=== PATIENT | female | born 1985 | race Caucasian/White ===

== ENCOUNTER 2017-05-30 11:06 | Emergency (ER) | payer BC ==
--- NOTE | 2017-05-30 11:27 | EDM.PDOC ---
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 Problem Stated Complaint: PELVIC PAIN Time Seen by Provider: 05/30/17 11:27 Source of Information: Reports: Patient - History of Present Illness INITIAL COMMENTS - FREE TEXT/NARRATIVE: HISTORY AND PHYSICAL: HISTORY AND PHYSICAL: History of present illness: []Patient presents with pain that began immediately after intercourse on Sunday she rates 7 out of 10, she is in no distress she does have vaginal discharge and history of ovarian torsion due to large cysts on the right with oophorectomy Denies abnormal Pap smears No fever nausea vomiting chills sweats no chest pain shortness breath headache dizziness palpitation no bowel or urine symptoms Review of systems: As per history of present illness and below otherwise all systems reviewed and negative. Past medical history: As per history of present illness and as reviewed below otherwise noncontributory. Surgical history: As per history of present illness and as reviewed below otherwise noncontributory. Social history: No reported history of drug or alcohol abuse. Family history: As per history of present illness and as reviewed below otherwise noncontributory. Physical exam: HEENT: Atraumatic, normocephalic, pupils reactive, negative for conjunctival pallor or scleral icterus, mucous membranes moist, throat clear, neck supple, nontender, trachea midline. Lungs: Clear to auscultation, breath sounds equal bilaterally, chest nontender. Heart: S1S2, regular, negative for clicks, rubs, or JVD. Abdomen: Soft, nondistended, nontender. Negative for masses or hepatosplenomegaly. Negative for costovertebral tenderness. Pelvis: Stable nontender. Genitourinary: External vaginal exam slight diffuse infection no mass scar or lesion otherwise, internal exam again mild yeast with amaya discharge no cervical motion tenderness no mass scarred lesion mucosa is otherwise pink and moist Rectal: Deferred. Extremities: Atraumatic, negative for cords or calf pain. Neurovascular unremarkable. Neuro: Awake, alert, oriented. Cranial nerves II through XII unremarkable. Cerebellum unremarkable. Motor and sensory unremarkable throughout. Exam nonfocal. Diagnostics: []GC Chlamydia Wet prep Ultrasound pelvis Therapeutics: []Azithromycin 2 g Flagyl 500 mg by mouth twice a day #14 no refill Diflucan 150 mg by mouth every other day #3 Follow-up with primary care in 2 weeks sooner as needed Bus Monitor follow-up would be appropriate as well Impression: []Vaginal East infection Bacterial vaginosis Definitive disposition and diagnosis as appropriate pending reevaluation and review of above. Pelvic Pain Score (Numeric/FACES): 6 - Related Data Allergies Allergy/AdvReac Type Severity Reaction Status Date / Time Penicillins Allergy Hives Verified 05/30/17 11:14 Home Meds: Home Meds medroxyPROGESTERone Acetate [Depo-Provera] 05/30/17 [History] Past Medical History TIP FIXER History: Reports: Other (See Below) Other OB/BYN History: Ovarian torsion, - Past Surgical History GI Surgical History: Reports: Cholecystectomy Social & Family History - Tobacco Use Smoking Status *Q: Never Smoker - Caffeine Use Caffeine Use: Reports: Coffee - Recreational Drug Use Recreational Drug Use: No ED ROS GENERAL - Review of Systems Review Of Systems: ROS reveals no pertinent complaints other than HPI. ED EXAM, GENERAL - Physical Exam Exam: See Below Course - Vital Signs Last Recorded V/S: Last Vital Signs Temp 36.6 C 05/30/17 11:15 Pulse 79 05/30/17 11:15 Resp 18 05/30/17 11:15 BP 128/77 05/30/17 11:15 Pulse Ox 98 05/30/17 11:15 - Orders/Labs/Meds Orders: Active Orders 24 hr Category Date Time Status CHLAMYDIA TRACHOMATIS/GC AMPLF Stat Lab 05/30/17 11:53 Received Labs: Laboratory Tests 05/30/17 05/30/17 05/30/17 Range/Units 11:40 11:40 11:53 Urine Color YELLOW Urine Appearance CLEAR Urine pH 5.5 (5.0-8.0) Ur Specific [place] 1.025 (1.001-1.035) Urine Protein NEGATIVE (NEGATIVE) mg/dL Urine Glucose (UA) NEGATIVE (NEGATIVE) mg/dL Urine Ketones NEGATIVE (NEGATIVE) mg/dL Urine Occult Blood NEGATIVE (NEGATIVE) Urine Nitrite NEGATIVE (NEGATIVE) Urine Bilirubin NEGATIVE (NEGATIVE) Urine Urobilinogen 0.2 (<2.0) EU/dL Ur Leukocyte Esterase NEGATIVE (NEGATIVE) Urine RBC 1-3 (0-2/HPF) Urine WBC 3-5 (0-5/HPF) Ur Epithelial Cells FEW (NONE-FEW) Urine Bacteria FEW (NEGATIVE) Urine HCG, Qual NEGATIVE (NEGATIVE) Kelsey species DNA NEGATIVE (NEGATIVE) Gardnerella DNA Probe POSITIVE H (NEGATIVE) Trichomonas DNA Probe NEGATIVE (NEGATIVE) Meds: Medications Discontinued Medications Generic Name Dose Route Start Last Admin Trade Name Martín PRN Reason Stop Dose Admin Azithromycin 2,000 mg 05/30/17 12:59 Zithromax PO 05/30/17 13:00 STAT ONE Departure - Departure Time of Disposition: 13:09 Disposition: Home, Self-Care 01 Condition: Good Clinical Impression: Bacterial vaginosis, Vaginal yeast infection - Discharge Information Referrals: PCP,None [Primary Care Provider] - Forms: ED Department Discharge Additional Instructions: Medication as prescribed Return if symptoms persist or worsen Again lab is pending at this time and should be followed with primary care or gynecology Follow-up with primary care or head of design in 2 weeks [facility] [address] [place] [id number] [facility] [address] [place] [id number] The following information is given to patients seen in the emergency department who are being discharged to home. This information is to outline your options for follow-up care. We provide all patients seen in our emergency department with a follow-up referral. The need for follow-up, as well as the timing and circumstances, are variable depending upon the specifics of your emergency department visit. If you don't have a primary care physician on staff, we will provide you with a referral. We always advise you to contact your personal physician following an emergency department visit to inform them of the circumstance of the visit and for follow-up with them and/or the need for any referrals to a consulting specialist. The emergency department will also refer you to a specialist when appropriate. This referral assures that you have the opportunity for follow-up care with a specialist. All of these measure are taken in an effort to provide you with optimal care, which includes your follow-up. Under all circumstances we always encourage you to contact your private physician who remains a resource for coordinating your care. When calling for follow-up care, please make the office aware that this follow-up is from your recent emergency room visit. If for any reason you are refused follow-up, please contact the [facility] emergency department at and asked to speak to the emergency department charge nurse. - My Orders Last 24 Hours: My Active Orders 05/30/17 11:53 CHLAMYDIA TRACHOMATIS/GC AMPLF Stat - Assessment/Plan Last 24 Hours: My Active Orders 05/30/17 11:53 CHLAMYDIA TRACHOMATIS/GC AMPLF Stat
--- NOTE | 2017-05-30 12:42 | US ---
Pelvic sonogram. Multiple high-resolution images through the pelvis were obtained demonstrating a normal uterus with normal endometrium measuring 0.14 cm. There is a tiny amount of pelvic peritoneal fluid. Patient is status post removal of right ovary. Multiple small follicles are present on the left ovary. No solid masses identified. Impression: No acute abnormalities. Prior right oophorectomy. Small follicles on the left ovary and small free fluid without other finding. No finding to suggest either intrauterine or extra uterine g estation is likely
[2017-05-30] MEDS ORDERED: Azithromycin 250 MG Tab PO ONE (12:59)
[2017-05-30 13:59] VITALS: BP 124/78
== END 2017-05-30 13:40 | disposition home or self-care (01) ==
LOC: MW.ED 11:06
DX: N76.0 Acute vaginitis (principal); B37.3 Candidiasis of vulva and vagina; Z88.0 Allergy status to penicillin; Z90.49 Acquired absence of other specified parts of digestive tract
CPT/HCPCS: 76856; 81001; 81025; 87480; 87491; 87510; 87591; 87660; 99284; A9270; 99283

== ENCOUNTER 2020-01-19 05:16 | Inpatient (IN) | payer OTHER ==
[2020-01-19] MEDS ORDERED: Citric Acid/Sodium Citrate Solution 30 ML Cup PO ONE (05:24)
[2020-01-19] MEDS ORDERED: Ondansetron 4 MG/2 ML SDV IVPUSH PRN ×3 (05:24→09:22)
[2020-01-19] MEDS ORDERED: Azithromycin 500 MG in Sodium Chloride 0.9% 250 ML IV ONE ×5 (05:24→08:00)
[2020-01-19] MEDS ORDERED: Sodium Chloride 0.9% 10 ML Syringe FLUSH PRN (05:24)
[2020-01-19] MEDS ORDERED: Sodium Chloride 0.9% 10 ML SDV IV PRN (05:24)
[2020-01-19] MEDS ORDERED: Sodium Chloride 0.9% 2.5 ML Syringe FLUSH PRN (05:24)
[2020-01-19] MEDS ORDERED: Oxytocin/0.9 % Sodium Chloride 30 UNIT/500 ML BAG IV SCH (05:30)
[2020-01-19] MEDS ORDERED: Lactated Ringers 1,000 ML IV SCH ×2 (05:30→09:30)
[2020-01-19] MEDS ORDERED: Scopolamine 1.5 MG Transdermal Patch TRDERM PRN (07:05)
--- NOTE | 2020-01-19 07:05 | PCM.PREANE ---
Preanesthetic Assessment - Anesthesia/Transfusion/Family Hx Anesthesia History: Prior Anesthesia Without Reaction Family History of Anesthesia Reaction: No Transfusion History: No Prior Transfusion(s) Intubation History: Unknown - Review of Systems General: No Symptoms Pulmonary: No Symptoms Cardiovascular: No Symptoms Gastrointestinal: No Symptoms Neurological: No Symptoms Other: Reports: None - Physical Assessment Height: 5 ft 6 in Weight: 101.151 kg ASA Class: 2 Mental Status: Alert & Oriented x3 Airway Class: Mallampati = 1 Dentition: Reports: Normal Dentition Thyro-Mental Finger Breadths: 3 Mouth Opening Finger Breadths: 3 ROM/Head Extension: Full Lungs: Clear to Auscultation, Normal Respiratory Effort Cardiovascular: Regular Rate, Regular Rhythm - Lab Values: Laboratory Last Values WBC 11.21 K/uL (4.0-11.0) H 01/19/20 06:35 RBC 4.53 M/uL (4.30-5.90) 01/19/20 06:35 Hgb 11.7 g/dL (12.0-16.0) L 01/19/20 06:35 Hct 37.9 % (36.0-46.0) 01/19/20 06:35 MCV 83.7 fL (80.0-98.0) 01/19/20 06:35 MCH 25.8 pg (27.0-32.0) L 01/19/20 06:35 MCHC 30.9 g/dL (31.0-37.0) L 01/19/20 06:35 RDW Std Deviation 49.4 fl (28.0-62.0) 01/19/20 06:35 RDW Coeff of Hector 16 % (11.0-15.0) H 01/19/20 06:35 Plt Count 199 K/uL (150-400) 01/19/20 06:35 MPV 11.60 fL (7.40-12.00) 01/19/20 06:35 Nucleated RBC % 0.0 /100WBC 01/19/20 06:35 Nucleated RBCs # 0 K/uL 01/19/20 06:35 - Allergies Allergies/Adverse Reactions: Allergies Allergy/AdvReac Type Severity Reaction Status Date / Time Penicillins Allergy Hives Verified 01/13/20 09:58 - Blood Blood Available: No - Anesthesia Plan Pre-Op Medication Ordered: None - Acknowledgements Anesthesia Type Planned: Spinal (general anesthesia back-up plan) Pt an Appropriate Candidate for the Planned Anesthesia: Yes Alternatives and Risks of Anesthesia Discussed w Pt/Guardian: Yes Pt/Guardian Understands and Agrees with Anesthesia Plan: Yes PreAnesthesia Questionnaire HEENT History: Reports: None Cardiovascular History: Reports: None Respiratory History: Reports: Asthma, Other (See Below) Other Respiratory History: allergy induced asthma Gastrointestinal History: Reports: GERD Other Gastrointestinal History: heartburn during Genitourinary History: Reports: None APPLICATIONS MANAGER History: Reports: , Other (See Below) Other OB/BYN History: Ovarian torsion, Musculoskeletal History: Reports: None Neurological History: Reports: None Psychiatric History: Reports: Depression Endocrine/Metabolic History: Reports: Obesity/BMI 30+ Other Endocrine/Metabolic History: hypothyroidism in the past, not recently Hematologic History: Reports: None Immunologic History: Reports: None Oncologic (Cancer) History: Reports: None Dermatologic History: Reports: None - Past Surgical History Head Surgeries/Procedures: Reports: None HEENT Surgical History: Reports: Adenoidectomy Cardiovascular Surgical History: Reports: None Respiratory Surgical History: Reports: None GI Surgical History: Reports: Cholecystectomy Female Surgical History: Reports: Breast Implant, Section, Other ( See Below) Other Female Surgeries/Procedures: laparoscopy with oophorectomy for ovarian torsion Endocrine Surgical History: Reports: None Neurological Surgical History: Reports: None Musculoskeletal Surgical History: Reports: None Oncologic Surgical History: Reports: None Dermatological Surgical History: Reports: None - SUBSTANCE USE Smoking Status *Q: Never Smoker - HOME MEDS Home Medications: Home Meds Pnv No.95/Ferrous Fum/Folic AC [ Tablet] 1 tab PO DAILY 11/17/19 [ History] buPROPion HCl [Wellbutrin Xl] 150 mg PO DAILY 11/17/19 [History] Albuterol Sulfate [Albuterol Sulfate Hfa] 2 puff INH ASDIRECTED PRN 01/13/20 [ History] Iron Polysaccharide Complex [Poly-Iron] 150 mg PO DAILY 01/13/20 [History] Montelukast Sodium 10 mg PO DAILY 01/13/20 [History] Omeprazole Magnesium [Prilosec Otc] 1 tab PO DAILY 01/13/20 [History] - CURRENT (IN HOUSE) MEDS Current Meds: Current Medications Lactated Ringer's (Ringers, Lactated) 1,000 mls @ 500 mls/hr IV BOLUS SAMIR Oxytocin/Sodium Chloride (Oxytocin 30 Unit/500 Ml-Ns) 30 unit in 500 mls @ 250 mls/hr IV TITRATE SAMIR Ondansetron HCl (Zofran) 4 mg IVPUSH Q4H PRN PRN Reason: Nausea/Vomiting Sodium Chloride (Saline Flush) 10 ml FLUSH ASDIRECTED PRN PRN Reason: Keep Vein Open Sodium Chloride (Saline Flush) 2.5 ml FLUSH ASDIRECTED PRN PRN Reason: Keep Vein Open Sodium Chloride (Normal Saline) 10 ml IV ASDIRECTED PRN PRN Reason: IV Use Discontinued Medications Citric Acid/Sodium Citrate (Bicitra Solution) 30 ml PO ONETIME ONE Stop: 01/19/20 05:25 Azithromycin 500 mg/ Sodium (Chloride) 250 mls @ 250 mls/hr IV ONETIME ONE Stop: 01/19/20 06:23
[2020-01-19] MEDS ORDERED: Octyl 2-Cyanoacrylate 1 Tube ONE (07:26)
[2020-01-19] MEDS ORDERED: Oxytocin 10 Units/1 ML SDV ONE (07:40)
[2020-01-19] MEDS ORDERED: Ondansetron 4 MG/2 ML SDV ONE (07:40)
[2020-01-19] MEDS ORDERED: Morphine PF 10 MG/10 ML SDV ONE (07:45)
[2020-01-19] MEDS ORDERED: Nalbuphine 10 MG/1 ML Vial IVPUSH PRN (07:49)
[2020-01-19] MEDS ORDERED: Acetaminophen/oxyCODONE 325-5 MG Tab PO PRN ×2 (07:49→09:22)
[2020-01-19] MEDS ORDERED: fentaNYL 100 MCG/2 ML SDV IVPUSH PRN (07:49)
[2020-01-19] MEDS ORDERED: Naloxone 0.4 MG/ML Syringe IVPUSH PRN (07:49)
[2020-01-19] MEDS ORDERED: diphenhydrAMINE 50 MG/ML SDV IVPUSH PRN ×2 (07:49→09:22)
[2020-01-19] MEDS ORDERED: ePHEDrine 50 MG/ML SDV ONE (08:25)
--- NOTE | 2020-01-19 09:21 | PCM.OPNOTE ---
- General Post-Op/Procedure Note Date of Surgery/Procedure: 01/19/20 Operative Procedure(s): repeat low transverse Findings: Liveborn female 9 weight 3750 grams Normal appearing tubes and ovaries. Pre Op Diagnosis: 39 weeks previous csection, desires repeat. Post-Op Diagnosis: Same Primary Surgeon: Christine Curry Secondary Surgeon: Hubert Mchugh Anesthesia Provider: Tomas Bradford Reason Chief Telephone Operator Was Necessary: previous abdominoplasty with abdominal wall adhesions Pathology: none EBL in mLs: 700 Complications: None Known Condition: Good
[2020-01-19] MEDS ORDERED: Tranexamic Acid 1,000 MG in Sodium Chloride 0.9% 100 ML IV PRN (09:22)
[2020-01-19] MEDS ORDERED: Lanolin 100% Cream 7 GM Tube TOP PRN (09:22)
[2020-01-19] MEDS ORDERED: Methylergonovine 0.2 MG/1 ML Amp IM PRN (09:22)
[2020-01-19] MEDS ORDERED: Bisacodyl 10 MG Supp RECTAL PRN (09:22)
[2020-01-19] MEDS ORDERED: Oxytocin 10 Units/1 ML SDV IM PRN (09:22)
[2020-01-19] MEDS ORDERED: Misoprostol 200 MCG Tab RECTAL PRN (09:22)
[2020-01-19] MEDS ORDERED: Oxytocin/Lactated Ringers 30 UNIT/500 ML BAG IV SCH (09:30)
[2020-01-19] MEDS: Ketorolac 30 MG/ML SDV IVPUSH SCH ×2 (10:18→15:42)
--- NOTE | 2020-01-19 15:49 | OR ---
SURGEON: Christine Curry M.D. DATE OF PROCEDURE: 01/19/2020 PREOPERATIVE DIAGNOSES: A 39-week intrauterine , prior delivery, declines vaginal trial of labor. POSTOPERATIVE DIAGNOSES: A 39-week intrauterine , prior delivery, declines vaginal trial of labor. PROCEDURE: Repeat low-transverse section. PRIMARY SURGEON: Christine Curry M.D. CENTRAL MELT SPECIALIST: Hubert Mchugh MD. ANESTHESIA: Spinal. ESTIMATED BLOOD LOSS: 700 mL. FINDINGS: Liveborn female. score of 9 and 9, weighing 3750 g. Normal-appearing uterus, tubes, and ovaries. Dense adhesions between the rectus muscle and the fascia. COMPLICATIONS: None known. DISPOSITION: Stable to Recovery. BRIEF HISTORY: This is a 34-year-old female, G2, P0-1-0-2, presents having had 1 prior delivery mid trimester due to twin gestation at approximately 28 weeks. She has had uncomplicated care with this Brenner , and she presents for repeat delivery having been thoroughly counseled regarding risks and benefits of section including bleeding; infection; injury to bowel, bladder, blood vessels or other organs; risk of thromboembolic event; risk of anesthesia versus vaginal trial of labor and she desires repeat . DESCRIPTION OF PROCEDURE: With the patient in left tilt position, under adequate spinal analgesia, the abdomen was prepped with chlorhexidine and draped in the usual fashion for abdominal surgery. SCDs were in place. Marley catheter had been placed. An appropriate time-out was held. She had received azithromycin 500 mg IV for prophylaxis and evaluation of the abdomen was then performed. The previous abdominoplasty transverse incision was somewhat higher on the right than the left and extended cephalad further to the right, so therefore I excised the cicatrix broadly in order to accommodate 1 incision that was approximately level across the abdomen. I excised the cicatrix and carried the incision through the subcutaneous tissue to the fascia, which was scored transversely in the midline. The fascial incision was extended laterally using curved Gaffney scissors. The fascia was densely adherent to the rectus muscle and this was carefully dissected using sharp and blunt dissection, and careful hemostasis, cephalad, caudad, and the rectus muscles were then bluntly in the midline. A finger was used to enter the peritoneal cavity. There were no adhesions anteriorly. The incision was extended using sharp and blunt dissection. The Timmy O retractor was placed. The visceroperitoneum over the lower uterine segment was incised. A transverse curvilinear incision was made with a scalpel and a finger was used to enter the amniotic cavity. Clear fluid was noted. The incision was extended using cephalad and caudad traction, and the head was delivered via the uterine incision. The infant was bulb suctioned by nose and mouth with subsequent delivery of the infant's shoulders and body. At the 1 minute cheyanne, the cord was doubly clamped and cut, and the infant was handed to the nurse in attendance at delivery. The infant was a liveborn female, score of 9 and 9, weighing 3750 g. Cord blood was collected for cord ABGs as well as routine cord blood sampling. Pitocin was initiated after delivery of the infant to assist with delivery of the placenta which was delivered by manual extraction. The uterus was cleaned with dry laparotomy tape. The cervix was opened with ring forceps and the uterus was cleaned with a laparotomy tape. The uterine incision was closed with a running lock suture of 0 Polysorb followed by 2 [id number] sutures for hemostasis. The posterior cul-de-sac and pericolic gutters were cleaned. The tubes and ovaries appeared normal. The uterine incision was inspected and was hemostatic. The Timmy O retractor was removed. Final inspection revealed complete hemostasis. Therefore, the rectus muscle and peritoneum were loosely approximated in the midline using a running mattress suture of 0 Polysorb. The posterior aspect of the fascia was inspected and there was no areas of bleeding. Therefore, the fascial incision was closed with a running suture of 0 Polysorb. Subcutaneous tissue was irrigated. Any areas of bleeding that were noted were cauterized. The deep subcutaneous tissue was approximated using a running 3-0 plain, and the skin was reapproximated with a subcuticular suture of 3-0 Monocryl followed by Dermabond. Final sponge, needle, and instrument counts were reported as correct. There were no known complications. Mother and baby are in Recovery in good condition. JARROD LUGO /[id number]
[2020-01-19] MEDS ORDERED: Ketorolac 60 MG/2 ML SDV IM ONE (22:01)
[2020-01-19] MEDS ORDERED: Ketorolac 30 MG/ML SDV ONE (22:19)
[2020-01-19] MEDS: Docusate Sodium 100 MG Cap PO SCH (22:36)
[2020-01-20] MEDS: Ketorolac 30 MG/ML SDV IVPUSH SCH (00:15)
[2020-01-20] MEDS ORDERED: Acetaminophen 500 MG Tab PO PRN (03:57)
[2020-01-20] MEDS: Ibuprofen 800 MG Tab PO PRN ×2 (04:52→12:41)
--- NOTE | 2020-01-20 07:36 | PCM48HPAN ---
Post Anesthesia Note - EVALUATION WITHIN 48HRS OF ANESTHETIC Vital Signs in Normal Range: Yes Patient Participated in Evaluation: Yes Respiratory Function Stable: Yes Airway Patent: Yes Cardiovascular Function Stable: Yes Hydration Status Stable: Yes Pain Control Satisfactory: Yes Nausea and Vomiting Control Satisfactory: Yes Mental Status Recovered: Yes Vital Signs: Last Vital Signs Temp 36.2 C 01/20/20 05:00 Pulse 98 01/20/20 07:00 Resp 18 01/20/20 07:00 BP 100/52 L 01/20/20 05:00 Pulse Ox 99 01/20/20 07:00 - COMMENTS/OBSERVATIONS Free Text/Narrative:: No anesthesia complications or concerns.
[2020-01-20] MEDS: Docusate Sodium 100 MG Cap PO SCH (08:17)
[2020-01-20] MEDS: Acetaminophen/oxyCODONE 325-5 MG Tab PO PRN ×3 (08:17→12:39)
[2020-01-20 09:13] VITALS: BP 108/59; PULSE 89
--- NOTE | 2020-01-20 12:12 | PCM.PNPP ---
- General Info Date of Service: 01/20/20 Functional Status: Reports: Pain Controlled, Tolerating Diet, Ambulating - Review of Systems General: Reports: No Symptoms HEENT: Reports: No Symptoms Pulmonary: Reports: No Symptoms Cardiovascular: Reports: No Symptoms Gastrointestinal: Reports: No Symptoms Genitourinary: Reports: No Symptoms Musculoskeletal: Reports: No Symptoms Skin: Reports: No Symptoms Neurological: Reports: No Symptoms Psychiatric: Reports: No Symptoms - General Info Date of Service: 01/20/20 - Patient Data Vital Signs - Most Recent: Last Vital Signs Temp 36.6 C 01/20/20 09:00 Pulse 89 01/20/20 09:00 Resp 16 01/20/20 09:00 BP 108/59 L 01/20/20 09:00 Pulse Ox 99 01/20/20 07:00 Weight - Most Recent: 101.151 kg I&O - Last 24 Hours: Intake & Output 01/19/20 01/20/20 01/20/20 22:59 06:59 14:59 Intake Total 900 Output Total 1000 1300 Balance -100 -1300 Lab Results - Last 24 Hours: Laboratory Results - last 24 hr 01/20/20 Range/Units 05:28 Hgb 8.4 L (12.0-16.0) g/dL Hct 27.7 L (36.0-46.0) % Med Orders - Current: Current Medications Acetaminophen (Tylenol Extra Strength) 1,000 mg PO Q6H PRN PRN Reason: Pain Last Admin: 01/20/20 04:53 Dose: 1,000 mg Bisacodyl (Dulcolax) 10 mg RECTAL ONETIME PRN PRN Reason: Constipation Diphenhydramine HCl (Benadryl) 25 mg IVPUSH Q6H PRN PRN Reason: Itching or Nausea Docusate Sodium (Colace) 100 mg PO BID SAMIR Last Admin: 01/20/20 08:17 Dose: 100 mg Emollient Ointment (Lansinoh Hpa) 0 gm TOP ASDIRECTED PRN PRN Reason: Sore Nipples Last Admin: 01/19/20 14:17 Dose: 7 gm Fentanyl (Sublimaze) 50 mcg IVPUSH Q1H PRN PRN Reason: Pain (severe 7-10) Lactated Ringer's (Ringers, Lactated) 1,000 mls @ 125 mls/hr IV ASDIRECTED SAMIR Last Admin: 01/19/20 10:56 Dose: 125 mls/hr Oxytocin/Lactated Ringer's (Pitocin In Lr 30 Units/500 Ml) 30 unit in 500 mls @ 999 mls/hr IV TITRATE SAMIR; Protocol Tranexamic Acid 1,000 mg/ (Sodium Chloride) 110 mls @ 660 mls/hr IV ONETIME PRN PRN Reason: Bleeding Ibuprofen (Motrin) 800 mg PO Q8H PRN PRN Reason: mild pain or fever Last Admin: 01/20/20 04:52 Dose: 800 mg Methylergonovine Maleate (Methergine) 0.2 mg IM ONETIME PRN PRN Reason: Excessive Vaginal Bleeding Misoprostol (Cytotec) 1,000 mcg RECTAL ONETIME PRN PRN Reason: excessive bleeding Nalbuphine HCl (Nubain) 5 mg IVPUSH ASDIRECTED PRN PRN Reason: Itching Ondansetron HCl (Zofran) 4 mg IVPUSH Q6H PRN PRN Reason: Nausea Ondansetron HCl (Zofran) 4 mg IVPUSH Q4H PRN PRN Reason: Nausea/Vomiting Oxycodone/Acetaminophen (Percocet 325-5 Mg) 1 tab PO Q4H PRN PRN Reason: Pain (moderate 4-6) Last Admin: 01/20/20 09:14 Dose: 1 tab Oxycodone/Acetaminophen (Percocet 325-5 Mg) 2 tab PO Q4H PRN PRN Reason: Pain (moderate 4-6) Oxytocin (Pitocin) 10 unit IM ASDIRECTED PRN PRN Reason: Excessive Vaginal Bleeding Scopolamine (Transderm-Scop) 1.5 mg TRDERM Q72H PRN PRN Reason: Nausea Discontinued Medications Citric Acid/Sodium Citrate (Bicitra Solution) 30 ml PO ONETIME ONE Stop: 01/19/20 05:25 Diphenhydramine HCl (Benadryl) 25 mg IVPUSH Q4H PRN PRN Reason: Itching Stop: 01/20/20 07:49 Ephedrine Sulfate (Ephedrine Sulfate) Confirm Administered Dose 50 mg .ROUTE .STK-MED ONE Stop: 01/19/20 08:26 Azithromycin 500 mg/ Sodium (Chloride) 250 mls @ 250 mls/hr IV ONETIME ONE Stop: 01/19/20 06:23 Lactated Ringer's (Ringers, Lactated) 1,000 mls @ 500 mls/hr IV [facility] Last Admin: 01/19/20 07:00 Dose: 500 mls/hr Oxytocin/Sodium Chloride (Oxytocin 30 Unit/500 Ml-Ns) 30 unit in 500 mls @ 250 mls/hr IV TITRATE SAMIR Azithromycin 500 mg/ Sodium (Chloride) 250 mls @ 250 mls/hr IV ONETIME ONE Stop: 01/19/20 08:59 Ketorolac Tromethamine (Toradol) 30 mg IVPUSH Q6H [facility] Stop: 01/20/20 09:31 Last Admin: 01/20/20 00:15 Dose: Not Given Ketorolac Tromethamine (Toradol) 60 mg IM ONETIME ONE Stop: 01/19/20 22:02 Last Admin: 01/19/20 22:02 Dose: Not Given Ketorolac Tromethamine (Toradol) Confirm Administered Dose 60 mg .ROUTE .STK- MED ONE Stop: 01/19/20 22:20 Last Admin: 01/19/20 22:26 Dose: 60 mg Morphine Sulfate (Duramorph Pf) Confirm Administered Dose 10 mg .ROUTE .STK-MED ONE Stop: 01/19/20 07:46 Naloxone HCl (Narcan) 0.1 mg IVPUSH ONETIME PRN PRN Reason: Respiratory Depression Stop: 01/20/20 07:49 Octyl Cyanoacrylate (Dermabond Advance) Confirm Administered Dose 1 applic .ROUTE .STK-MED ONE Stop: 01/19/20 07:27 Ondansetron HCl (Zofran) 4 mg IVPUSH Q4H PRN PRN Reason: Nausea/Vomiting Ondansetron HCl (Zofran) Confirm Administered Dose 4 mg .ROUTE .STK-MED ONE Stop: 01/19/20 07:41 Oxytocin (Pitocin) Confirm Administered Dose 20 unit .ROUTE .STK-MED ONE Stop: 01/19/20 07:41 Sodium Chloride (Saline Flush) 10 ml FLUSH ASDIRECTED PRN PRN Reason: Keep Vein Open Sodium Chloride (Saline Flush) 2.5 ml FLUSH ASDIRECTED PRN PRN Reason: Keep Vein Open Sodium Chloride (Normal Saline) 10 ml IV ASDIRECTED PRN PRN Reason: IV Use - Infant Interaction Disposition, : [place] in Room with Family Interaction: Holding Infant Feeding: Breastfed ; Nursed Well Support Person: - Recovery Exam Fundal Tone: Firm Fundal Level: At Umbilicus Fundal Placement: Midline Lochia Amount: Scant Lochia Color: Rubra/Red Perineum Description: Intact, Minimal Bruising/Swelling Episiotomy/Laceration: None Bladder Status: Voiding Urinary Elimination: Voided - Exam General: Alert, Oriented Neck: Supple Lungs: Normal Respiratory Effort GI/Abdominal Exam: Soft, Non-Tender Extremities: Normal Inspection, Non-Tender, No Pedal Edema Skin: Warm, Dry, Intact Wound/Incisions: Dressing Dry and Intact Neurological: No New Focal Deficit - Problem List & Annotations (1) delivery delivered SNOMED Code(s): 284188448 Code(s): O82 - ENCOUNTER FOR DELIVERY WITHOUT INDICATION Status: Acute Current Visit: Yes (2) Maternal care for uterine scar due to previous section, delivered SNOMED Code(s): 349595082, 075344536, 474310382 Code(s): O34.219 - MATERNAL CARE FOR UNSP TYPE SCAR FROM PREVIOUS DEL Status: Acute Current Visit: Yes - Problem List Review Problem List Initiated/Reviewed/Updated: Yes - My Orders Last 24 Hours: My Active Orders 01/19/20 21:00 Docusate Sodium [Colace] 100 mg PO BID 01/20/20 12:08 Ready for Discharge [RC] PER UNIT ROUTINE - Assessment Assessment:: POD#1 after repeat low transverse . Stable, minimal lochia. Working on . Still has colostrum only. She is a little frustrated and is supplementing. Her pain is fairly well controlled with Tylenol and ibuprofen. She would like to go home today to minimize COVID risk to she and her . - Plan Plan:: Dismiss to home today, discharge precautions reviewed.
== END 2020-01-20 13:54 | disposition home or self-care (01) | DRG 788 ==
LOC: MW.OB 05:16
PROVIDERS: ADMIT Obstetrics & Gynecology; ATTEND Obstetrics & Gynecology
PROC: 10D00Z1 Extraction of Products of Conception, Low, Open Approach (ICD-10-PCS; principal; 2020-01-19)
DX: O34.211 Maternal care for low transverse scar from previous cesarean delivery (principal); O99.02 Anemia complicating childbirth; Z3A.38 38 weeks gestation of pregnancy; Z37.0 Single live birth; O99.824 Streptococcus B carrier state complicating childbirth
CPT/HCPCS: 01961; 36415; 82803; 85014; 85018; 85027; 86592; 86593; 86850; 86900; 86901; A9270-GY; J1885; J2270; J2405; J2590; J7120

== ENCOUNTER 2020-07-18 01:43 | Emergency (ER) | payer OTHER ==
--- NOTE | 2020-07-18 02:07 | EDM.PDOC ---
ED HPI GENERAL MEDICAL PROBLEM - General Chief Complaint: Headache Stated Complaint: HEADACHES Time Seen by Provider: 07/18/20 01:54 - History of Present Illness INITIAL COMMENTS - FREE TEXT/NARRATIVE: History of present illness: Patient complains of severe headache. It is in the bifrontal area. Only completed a treatment for sinusitis. After that she developed diarrhea and discovered 3 days ago that she had C. difficile. She has had almost 3 days of vancomycin. The headache started today as severe in the frontal area. There is no nausea and vomiting. She does not have a fever. Worse when she moves from side to side. It is better when she is upright. [] Review of systems: As per history of present illness and below otherwise all systems reviewed and negative. Past medical history: As per history of present illness and as reviewed below otherwise noncontributory. Surgical history: As per history of present illness and as reviewed below otherwise noncontributory. Social history: No reported history of drug or alcohol abuse. Family history: As per history of present illness and as reviewed below otherwise noncontributory. Physical exam: Constitutional - well developed, well-nourished and in no acute distress HEENT -clearly she has tenderness in the frontal sinus area. The patient has a negative Brudzinski sign. Normocephalic, no evidence of trauma - external nose and mouth normal - no mass in neck and no JVD - mucosae moist EYES - full EOM, PERRL, no icterus - no evidence of inflammation, injection, or drainage Respiratory - no respiratory distress, equal bilateral expansion, lungs clear to auscultation and no abnormal lung sounds Cardiovascular - Regular Rhythm with S1 and S2 appreciated and no murmur, gallop or rub. GI - abdomen soft without distension or organomegaly - normal bowel sounds - no guard or rebound Musculoskeletal Kernig sign no gross deformity of long bones or joints - no tenderness, swelling or edema Neurologic - Alert and oriented times four - CN II-XII grossly intact - motor sensory and coordination symmetrically normal Psychiatric - appropriate mood and affect with normal thought content Hematologic - No petechiae or purpura - mucosa appropriate color and sclera not pale - normal nail bed color and refill Integument - no rash or evidence of trauma - normal turgor Diagnostics: [] Therapeutics: [] Impression: [] Plan: [] Definitive disposition and diagnosis as appropriate pending reevaluation and review of above. headche Pain Score (Numeric/FACES): 9 - Related Data Allergies Allergy/AdvReac Type Severity Reaction Status Date / Time Penicillins Allergy Hives Verified 07/18/20 01:57 Home Meds: Home Meds Pnv No.95/Ferrous Fum/Folic AC [ Tablet] 1 tab PO DAILY 11/17/19 [History] buPROPion HCL [Wellbutrin Xl] 150 mg PO DAILY 11/17/19 [History] Albuterol Sulfate [Albuterol Sulfate Hfa] 2 puff INH ASDIRECTED PRN 01/13/20 [History] Montelukast Sodium 10 mg PO DAILY 01/13/20 [History] Ondansetron [Zofran ODT] 4 mg PO Q6H PRN #10 tab.dis 07/18/20 [Rx] metroNIDAZOLE [Metronidazole] 250 mg PO TID 07/18/20 [History] Past Medical History HEENT History: Reports: None Cardiovascular History: Reports: None Respiratory History: Reports: Asthma, Other (See Below) Other Respiratory History: allergy induced asthma Gastrointestinal History: Reports: GERD Other Gastrointestinal History: heartburn during Genitourinary History: Reports: None END MATCHER History: Reports: , Other (See Below) Other END MATCHER History: Ovarian torsion, Musculoskeletal History: Reports: None Neurological History: Reports: None Psychiatric History: Reports: Anxiety, Depression Endocrine/Metabolic History: Reports: Obesity/BMI 30+ Other Endocrine/Metabolic History: hypothyroidism in the past, not recently Insulin Pump Model and Production Engineer: None Hematologic History: Reports: None Immunologic History: Reports: None Oncologic (Cancer) History: Reports: None Dermatologic History: Reports: None - Infectious Disease History Infectious Disease History: Reports: C-Difficile - Past Surgical History Head Surgeries/Procedures: Reports: None HEENT Surgical History: Reports: Adenoidectomy Cardiovascular Surgical History: Reports: None Respiratory Surgical History: Reports: None GI Surgical History: Reports: Cholecystectomy Female Surgical History: Reports: Breast Implant, Section, Other (See Below) Other Female Surgeries/Procedures: laparoscopy with oophorectomy for ovarian torsion Endocrine Surgical History: Reports: None Neurological Surgical History: Reports: None Musculoskeletal Surgical History: Reports: None Oncologic Surgical History: Reports: None Dermatological Surgical History: Reports: None Social & Family History - Tobacco Use Smoking Status *Q: Never Smoker - Caffeine Use Caffeine Use: Reports: Coffee, Soda, Tea - Recreational Drug Use Recreational Drug Use: No ED ROS GENERAL - Review of Systems Review Of Systems: Comprehensive ROS is negative, except as noted in HPI. ED EXAM, GENERAL - Physical Exam Exam: See Below Free Text/Narrative:: My physical exam is in the HPI Course - Vital Signs Text/Narrative:: 3:25 AM the patient felt better. Zofran prescription sent to pharmacy. Patient will take NSAIDs for the headache. Last Recorded V/S: Last Vital Signs Temp 97.5 F 07/18/20 01:57 Pulse 112 H 07/18/20 01:57 Resp 18 07/18/20 01:57 BP 122/61 07/18/20 01:57 Pulse Ox 98 07/18/20 01:57 - Orders/Labs/Meds Orders: Active Orders 24 hr Category Date Time Status Sodium Chloride 0.9% [Saline Flush] Med 07/18/20 02:12 Active 10 ml FLUSH ASDIRECTED PRN Sodium Chloride 0.9% [Saline Flush] Med 07/18/20 02:12 Active 2.5 ml FLUSH ASDIRECTED PRN Saline Lock Insert [OM.PC] Stat Oth 07/18/20 02:12 Ordered Medication Orders Sodium Chloride (Saline Flush) 10 ml FLUSH ASDIRECTED PRN PRN Reason: Keep Vein Open Sodium Chloride (Saline Flush) 2.5 ml FLUSH ASDIRECTED PRN PRN Reason: Keep Vein Open Labs: Laboratory Tests 07/18/20 07/18/20 07/18/20 Range/Units 02:20 02:20 02:20 WBC 7.94 (4.0-11.0) K/uL RBC 4.93 (4.30-5.90) M/uL Hgb 13.2 (12.0-16.0) g/dL Hct 40.7 (36.0-46.0) % MCV 82.6 (80.0-98.0) fL MCH 26.8 L (27.0-32.0) pg MCHC 32.4 (31.0-37.0) g/dL RDW Std Deviation 42.1 (28.0-62.0) fl RDW Coeff of Hector 14 (11.0-15.0) % Plt Count 244 (150-400) K/uL MPV 11.20 (7.40-12.00) fL Neut % (Auto) 72.3 (48.0-80.0) % Lymph % (Auto) 17.0 (16.0-40.0) % [place] % (Auto) 9.1 (0.0-15.0) % Eos % (Auto) 0.5 (0.0-7.0) % Baso % (Auto) 1.1 (0.0-1.5) % Neut # (Auto) 5.7 (1.4-5.7) K/uL Lymph # (Auto) 1.4 (0.6-2.4) K/uL [place] # (Auto) 0.7 (0.0-0.8) K/uL Eos # (Auto) 0.0 (0.0-0.7) K/uL Baso # (Auto) 0.1 (0.0-0.1) K/uL Nucleated RBC % 0.0 /100WBC Nucleated RBCs # 0 K/uL Sodium 138 (136-145) mmol/L Potassium 4.0 (3.5-5.1) mmol/L Chloride 105 (98-107) mmol/L Carbon Dioxide 24.0 (21.0-32.0) mmol/L BUN 9 (7.0-18.0) mg/dL Creatinine 0.8 (0.6-1.0) mg/dL Est Cr Clr Drug Dosing 93.63 mL/min Estimated GFR (MDRD) > 60.0 ml/min Glucose 103 (74-106) mg/dL Calcium 8.4 L (8.5-10.1) mg/dL Total Bilirubin 0.2 (0.2-1.0) mg/dL AST 24 (15-37) IU/L ALT 29 (14-63) IU/L Alkaline Phosphatase 76 (46-116) U/L Total Protein 6.7 (6.4-8.2) g/dL Albumin 3.2 L (3.4-5.0) g/dL Globulin 3.5 (2.6-4.0) g/dL Albumin/Globulin Ratio 0.9 (0.9-1.6) HCG, Qual NEGATIVE (NEG) Meds: Medications Generic Name Dose Route Start Last Admin Trade Name Freq PRN Reason Stop Dose Admin Sodium Chloride 10 ml 07/18/20 02:12 Saline Flush FLUSH ASDIRECTED PRN Keep Vein Open Sodium Chloride 2.5 ml 07/18/20 02:12 Saline Flush FLUSH ASDIRECTED PRN Keep Vein Open Discontinued Medications Generic Name Dose Route Start Last Admin Trade Name Freq PRN Reason Stop Dose Admin Sodium Chloride 1,000 mls @ 999 mls/hr 07/18/20 02:13 07/18/20 02:31 Normal Saline IV 07/18/20 03:13 999 mls/hr .BOLUS ONE Administration Ketorolac Tromethamine 15 mg 07/18/20 02:13 07/18/20 02:33 Toradol IVPUSH 07/18/20 02:14 Not Given ONETIME ONE Ketorolac Tromethamine 15 mg 07/18/20 02:16 07/18/20 02:32 Toradol IVPUSH 07/18/20 02:17 15 mg NOW STA Administration Departure - Departure Time of Disposition: 03:26 Disposition: Home, Self-Care 01 Condition: Good Clinical Impression: Sinusitis, Cephalgia, Dehydration - Discharge Information Prescriptions: Ondansetron [Zofran ODT] 4 mg PO Q6H PRN #10 tab.dis PRN Reason: Nausea Instructions: Dehydration, Adult, [id number], General Headache Without Cause, [id number] Referrals: Viktoriya Harry DO [Primary Care Provider] - Forms: ED Department Discharge Additional Instructions: The following information is given to patients seen in the emergency department who are being discharged to home. This information is to outline your options for follow-up care. We provide all patients seen in our emergency department with a follow-up referral. The need for follow-up, as well as the timing and circumstances, are variable depending upon the specifics of your emergency department visit. If you don't have a primary care physician on staff, we will provide you with a referral. We always advise you to contact your personal physician following an emergency department visit to inform them of the circumstance of the visit and for follow-up with them and/or the need for any referrals to a consulting specialist. The emergency department will also refer you to a specialist when appropriate. This referral assures that you have the opportunity for follow-up care with a specialist. All of these measure are taken in an effort to provide you with optimal care, which includes your follow-up. Under all circumstances we always encourage you to contact your private physician who remains a resource for coordinating your care. When calling for follow-up care, please make the office aware that this follow-up is from your recent emergency room visit. If for any reason you are refused follow-up, please contact the [facility] Emergency Department at and asked to speak to the emergency department charge nurse. Sepsis Event Note (ED) - Evaluation Sepsis Screening Result: No Definite Risk - Focused Exam Vital Signs: Vital Signs Temp Pulse Resp BP Pulse Ox 07/18/20 01:57 97.5 F 112 H 18 122/61 98 - My Orders Last 24 Hours: My Active Orders 07/18/20 02:12 Sodium Chloride 0.9% [Saline Flush] 10 ml FLUSH ASDIRECTED PRN Sodium Chloride 0.9% [Saline Flush] 2.5 ml FLUSH ASDIRECTED PRN Saline Lock Insert [OM.PC] Stat - Assessment/Plan Last 24 Hours: My Active Orders 07/18/20 02:12 Sodium Chloride 0.9% [Saline Flush] 10 ml FLUSH ASDIRECTED PRN Sodium Chloride 0.9% [Saline Flush] 2.5 ml FLUSH ASDIRECTED PRN Saline Lock Insert [OM.PC] Stat
[2020-07-18] MEDS ORDERED: Sodium Chloride 0.9% 2.5 ML Syringe FLUSH PRN (02:12)
[2020-07-18] MEDS ORDERED: Sodium Chloride 0.9% 10 ML Syringe FLUSH PRN (02:12)
[2020-07-18] MEDS ORDERED: Sodium Chloride 0.9% 1,000 ML IV ONE (02:13)
[2020-07-18] MEDS ORDERED: Ketorolac 30 MG/ML SDV IVPUSH ONE (02:13)
[2020-07-18] MEDS ORDERED: Ketorolac 15 MG/ML SDV IVPUSH STA (02:16)
[2020-07-18 02:48] LABS: BLOOD UREA NITROGEN,BUN 9 mg/dL (7.0-18.0); CHLORIDE,CL 105 mmol/L (98-107); GLUCOSE RANDOM 103 mg/dL (74-106); SODIUM,NA 138 mmol/L (136-145)
--- NOTE | 2020-07-18 03:13 | CT ---
INDICATION: Severe headache after treatment for sinusitis TECHNIQUE: CT Head without i.v. contrast. COMPARISON: None FINDINGS: CSF space: The ventricles are normal for age. Brain: No evidence of mass, acute infarction or hemorrhage is seen. No mass-effect or midline shift is seen. The brain parenchyma is otherwise normal in appearance with preservation of the amaya-white matter junction. Calvarium: The visualized paranasal sinuses are well aerated. The mastoid air cells are clear. The visualized orbits are grossly unremarkable. The calvarium is unremarkable in appearance with no fractures identified. IMPRESSION: 1. No evidence of acute infarction, intracranial hemorrhage, or mass-effect seen. Please note that all CT scans at this facility use dose modulation, iterative reconstruction, and/or weight-based dosing when appropriate to reduce radiation dose to as low as reasonably achievable. Dictated by: Jaspal Powers MD @ 07/18/2020 03:10:51 (Electronically Signed)
[2020-07-18 03:48] VITALS: BP 101/65; PULSE 92
== END 2020-07-18 03:40 | disposition home or self-care (01) ==
LOC: MW.ED 01:43
DX: R51 Headache (principal); J32.9 Chronic sinusitis, unspecified; E86.0 Dehydration; J45.909 Unspecified asthma, uncomplicated; F32.9 Major depressive disorder, single episode, unspecified; E66.9 Obesity, unspecified; Z88.0 Allergy status to penicillin; Z79.899 Other long term (current) drug therapy; Z68.29 Body mass index [BMI] 29.0-29.9, adult
CPT/HCPCS: 36415; 70450; 80053; 84703; 85025; 96361; 96374; 99284; J1885; J7030; 99283

== ENCOUNTER 2020-12-27 23:11 | Emergency (ER) | payer OTHER ==
[2020-12-28] MEDS ORDERED: Lactated Ringers 1,000 ML IV ONE (00:05)
[2020-12-28] MEDS ORDERED: Ondansetron 4 MG/2 ML SDV IVPUSH ONE (00:05)
[2020-12-28] MEDS ORDERED: Morphine 4 MG/ML Syringe IVPUSH ONE (00:13)
[2020-12-28] MEDS ORDERED: Morphine 4 MG/ML Syringe ONE (00:14)
[2020-12-28 00:25] LABS: BLOOD UREA NITROGEN,BUN 8 mg/dL (7.0-18.0); CARBON DIOXIDE,CO2 26.7 mmol/L (21.0-32.0); CHLORIDE,CL 106 mmol/L (98-107); GLUCOSE RANDOM 108 mg/dL (74-106); LIPASE 132 U/L (73-393); POTASSIUM,K 3.6 mmol/L (3.5-5.1); SODIUM,NA 140 mmol/L (136-145)
[2020-12-28] MEDS ORDERED: Iopamidol 755 MG/ML 500 ML Multipack Bottle IVPUSH STA (00:58)
--- NOTE | 2020-12-28 01:31 | CT ---
Indication: Epigastric pain, history of C diff Technique: Contrast enhanced axial CT imaging through the abdomen and pelvis. 100 mL Isovue 370 contrast agent was administered intravenously. Sagittal and coronal reconstructions are provided. Comparison: None Findings: No abnormalities are demonstrated relating to the liver, spleen, pancreas, adrenal glands, and kidneys. Cholecystectomy clips are noted. There is mild prominence of the biliary tree, presumably secondary to cholecystectomy. The portal vein is patent. The abdominal aorta is normal in caliber. There is no abdominal lymphadenopathy. The stomach and duodenum are unremarkable. There is no small bowel wall thickening or abnormal distention. The appendix is noninflamed. There is no colonic wall thickening, mesenteric edema, or intraperitoneal free fluid. The urinary bladder, uterus, and left ovary are unremarkable. The right ovary is not visualized. There is no pelvic free fluid or lymphadenopathy. A few surgical trip clips are noted in the anterior abdominal wall. The osseous structures are unremarkable. The included lung bases are clear. Impression: No acute process demonstrated in the abdomen pelvis. Please note that all CT scans at this facility use dose modulation, iterative reconstruction, and/or weight-based dosing when appropriate to reduce radiation dose to as low as reasonably achievable. Dictated by Brandon England MD @ Dec 28 2020 1:16AM Signed by Dr. Brandon England @ Dec 28 2020 1:29AM
[2020-12-28] MEDS ORDERED: Alum Hydrox/Mag Hydrox/Simeth 15 ML, Lidocaine 2% 5 ML PO ONE ×2 (02:20)
[2020-12-28] MEDS ORDERED: Famotidine 20 MG/2 ML SDV IVPUSH ONE (02:20)
--- NOTE | 2020-12-28 02:54 | EDM.PDOC ---
ED HPI GENERAL MEDICAL PROBLEM - General Chief Complaint: Abdominal Pain Stated Complaint: STOMACH CRAMPS Time Seen by Provider: 12/27/20 23:26 - History of Present Illness INITIAL COMMENTS - FREE TEXT/NARRATIVE: CHIEF COMPLAINT(S): Abdominal pain HISTORY OF PRESENT ILLNESS: This is a 35-year-old woman with a past medical history of C. difficile colitis and possible allergic reaction as the cause of her current abdominal pain who comes to the emergency department with a chief complaint of abdominal pain. The patient states that they have been dealing with this abdominal pain for quite some time. They states that it has gotten worse over the last 3 hours. She states that she has had a work-up for allergies as they thought this was secondary to allergies and she tested negative for any celiac disease or food allergies. She states that she did have a an allergy response and everything did turn positive so they thought it was a histaminergic reaction when she got a skin test. She states that over the last couple of months she has been using dairy and eggs less and it seemed to improve slightly however today it seemed to worsen. She states that she is experiencing abdominal cramps in the epigastric region radiating into her back. She states that she has had some vomiting and some loose stools but denies any large-volume diarrhea or foul-smelling diarrhea. She denies any recent antibiotics. She states that she rates her pain as 6-10 out of 10 when it at its worst and it is intermittent. She denies any aggravating or relieving factors and it does not seem to be associated with food. She states that she had 5 times episodes of this last year and in regards to her prior C. difficile she had it last fall when she had watery diarrhea but it was not foul-smelling they thought this was due to antibiotics. She denies any chest pain, shortness of breath, fever. REVIEW OF SYSTEMS: Constitutional: Denies fever, chills. Eyes: Denies eye pain Ears, Nose, Mouth, & Throat: Denies earache Cardiovascular: Denies chest pain Respiratory: Denies shortness of breath Gastrointestinal: Positive for epigastric abdominal pain and vomiting. Denies diarrhea, hematochezia, melena, hematemesis Genitourinary: Denies hematuria, vaginal bleeding, vaginal discharge Skin:Denies a rash MSK: Denies joint pain Neurological: Denies blurred vision Psychiatric: Denies depression PAST MEDICAL HISTORY: As per history of present illness and as reviewed below otherwise noncontributory. SURGICAL HISTORY: As per history of present illness and as reviewed below otherwise noncontributory. SOCIAL HISTORY: As per history of present illness and as reviewed below otherwise noncontributory. FAMILY HISTORY: As per history of present illness and as reviewed below otherwise noncontributory. EXAMINATION OF ORGAN SYSTEMS/BODY AREAS: Constitutional: Blood pressure is 120/74, heart rate 97, respiratory rate 19 with an oxygen saturation 100% on room air. Temperature 36.4 General: Young woman who appears to be in a moderate amount of pain. Psychiatric: Appropriate mood and affect. Eyes: No scleral icterus or conjunctival erythema ENMT: Moist mucous membranes. No pharyngeal erythema Cardiovascular: Regular, rate, and rhythm. No gallops, murmurs, or rubs. Bilateral upper extremity pulses symmetric and intact. No peripheral edema. No JVD. Respiratory: Lungs clear to auscultation bilaterally. No wheezes, rales, or rhonchi. Gastrointestinal: Soft, minimal tenderness in the epigastric and left upper quadrant. Nondistended. No rebound or guarding. Normoactive bowel sounds Genitourinary: No suprapubic tenderness Musculoskeletal: Normal range of motion. Skin: No lesions or abrasions. Neurological: Alert, GCS 15 MEDICAL DECISION MAKING AND COURSE IN THE ED WITH INTERPRETATION/REVIEW OF DIAGNOSTIC STUDIES: This is a 35-year old woman with a past medical history of C. difficile colitis and possible allergic cause of recurrent abdominal pain who comes to the emergency department with intermittent epigastric sharp pain associated with vomiting. At this time it is uncertain as to what is causing the symptoms as the patient has had this in the past and has had a complete work-up. Will obtain CBC, CMP, hCG, lipase, and urinalysis. We will provide the patient with 1 L of lactated Ringer's bolus and 4 mg of IV morphine. We will provide her with Zofran for nausea relief. Laboratory: CBC is unremarkable. CMP reveals hyperglycemia at 108, hypocalcemia 8.1 otherwise unremarkable. Lipase is normal. Urinalysis was a clean catch and was negative for leukocyte esterase, negative for nitrites, and negative for blood. Interpretation: Negative. On reevaluation the patient had continued pain despite morphine administration. I did discuss with her I like to obtain CT abdomen pelvis for further evaluation. She was amenable to this plan. At this time I did discuss with her that we could trial a GI cocktail with famotidine given that it could be peptic ulcer disease, gastritis or esophagitis. She was amenable to this plan. The radiological images were viewed by myself along with reading the report from the radiologist. CT abdomen pelvis does not reveal any acute intra-abdominal process. On reevaluation the patient stated that her pain had significantly improved. At this time presumptive diagnosis is gastritis versus reflux disease. I did discuss with her like her to take famotidine daily and Maalox as needed. She is to return for the emergency department for any new or worsening symptoms. She is to follow-up with her primary care physician. She was amenable to discharge and had no further questions. DISPOSITION: The patient was discharged home in stable condition. The patient will follow up with primary care physician within 3-5 CONDITION: Fair PROCEDURES: None FINAL IMPRESSION(S)/DIAGNOSES: 1. Acute on chronic epigastric and left upper quadrant pain likely secondary to gastritis versus peptic ulcer disease versus reflux Yves Canseco M.D. abdominal Pain Score (Numeric/FACES): 10 - Related Data Allergies Allergy/AdvReac Type Severity Reaction Status Date / Time Penicillins Allergy Hives Verified 12/27/20 23:19 Home Meds: Home Meds buPROPion HCL [Wellbutrin Xl] 150 mg PO DAILY 11/17/19 [History] Albuterol Sulfate [Albuterol Sulfate Hfa] 2 puff INH ASDIRECTED PRN 01/13/20 [History] Montelukast Sodium 10 mg PO DAILY 01/13/20 [History] Past Medical History HEENT History: Reports: None Cardiovascular History: Reports: None Respiratory History: Reports: Asthma, Other (See Below) Other Respiratory History: allergy induced asthma Gastrointestinal History: Reports: GERD Other Gastrointestinal History: heartburn during Genitourinary History: Reports: None CLINICAL INFORMATICS SPEC History: Reports: , Other (See Below) Other CLINICAL INFORMATICS SPEC History: Ovarian torsion, Musculoskeletal History: Reports: None Neurological History: Reports: None Psychiatric History: Reports: Anxiety, Depression Endocrine/Metabolic History: Reports: Obesity/BMI 30+ Other Endocrine/Metabolic History: hypothyroidism in the past, not recently Insulin Pump Model and Conservation Policy Analyst: None Hematologic History: Reports: None Immunologic History: Reports: None Oncologic (Cancer) History: Reports: None Dermatologic History: Reports: None - Infectious Disease History Infectious Disease History: Reports: C-Difficile, Chicken Pox - Past Surgical History Head Surgeries/Procedures: Reports: None HEENT Surgical History: Reports: Adenoidectomy, Tonsillectomy Cardiovascular Surgical History: Reports: None Respiratory Surgical History: Reports: None GI Surgical History: Reports: Cholecystectomy Female Surgical History: Reports: Breast Implant, Section, Other (See Below) Other Female Surgeries/Procedures: laparoscopy with oophorectomy for ovarian torsion Endocrine Surgical History: Reports: None Neurological Surgical History: Reports: None Musculoskeletal Surgical History: Reports: None Oncologic Surgical History: Reports: None Dermatological Surgical History: Reports: None Social & Family History - Tobacco Use Tobacco Use Status *Q: Never Tobacco User - Caffeine Use Caffeine Use: Reports: Coffee, Soda, Tea - Recreational Drug Use Recreational Drug Use: No ED ROS GENERAL - Review of Systems Review Of Systems: See Below ED EXAM, GI/ABD - Physical Exam Exam: See Below Course - Vital Signs Last Recorded V/S: Last Vital Signs Temp 36.4 C 12/28/20 02:58 Pulse 82 12/28/20 02:58 Resp 19 12/27/20 23:20 BP 116/68 12/28/20 02:58 Pulse Ox 98 12/28/20 02:58 - Orders/Labs/Meds Labs: Laboratory Tests 12/27/20 12/27/20 12/27/20 Range/Units 23:33 23:33 23:51 WBC 9.23 (4.0-11.0) K/uL RBC 4.96 (4.30-5.90) M/uL Hgb 13.6 (12.0-16.0) g/dL Hct 41.8 (36.0-46.0) % MCV 84.3 (80.0-98.0) fL MCH 27.4 (27.0-32.0) pg MCHC 32.5 (31.0-37.0) g/dL RDW Std Deviation 43.7 (28.0-62.0) fl RDW Coeff of Hector 14 (11.0-15.0) % Plt Count 253 (150-400) K/uL MPV 11.80 (7.40-12.00) fL Neut % (Auto) 48.5 (48.0-80.0) % Lymph % (Auto) 31.7 (16.0-40.0) % [place] % (Auto) 6.5 (0.0-15.0) % Eos % (Auto) 12.9 H (0.0-7.0) % Baso % (Auto) 0.4 (0.0-1.5) % Neut # (Auto) 4.5 (1.4-5.7) K/uL Lymph # (Auto) 2.9 H (0.6-2.4) K/uL [place] # (Auto) 0.6 (0.0-0.8) K/uL Eos # (Auto) 1.2 H (0.0-0.7) K/uL Baso # (Auto) 0.0 (0.0-0.1) K/uL Nucleated RBC % 0.0 /100WBC Nucleated RBCs # 0 K/uL Sodium (136-145) mmol/L Potassium (3.5-5.1) mmol/L Chloride (98-107) mmol/L Carbon Dioxide (21.0-32.0) mmol/L BUN (7.0-18.0) mg/dL Creatinine (0.6-1.0) mg/dL Est Cr Clr Drug Dosing mL/min Estimated GFR (MDRD) ml/min Glucose (74-106) mg/dL Calcium (8.5-10.1) mg/dL Total Bilirubin (0.2-1.0) mg/dL AST (15-37) IU/L ALT (14-63) IU/L Alkaline Phosphatase (46-116) U/L Total Protein (6.4-8.2) g/dL Albumin (3.4-5.0) g/dL Globulin (2.6-4.0) g/dL Albumin/Globulin Ratio (0.9-1.6) Lipase (73-393) U/L Urine Color YELLOW Urine Appearance CLEAR Urine pH 6.0 (5.0-8.0) Ur Specific [place] 1.025 (1.001-1.035) Urine Protein NEGATIVE (NEGATIVE) mg/dL Urine Glucose (UA) NEGATIVE (NEGATIVE) mg/dL Urine Ketones NEGATIVE (NEGATIVE) mg/dL Urine Occult Blood NEGATIVE (NEGATIVE) Urine Nitrite NEGATIVE (NEGATIVE) Urine Bilirubin NEGATIVE (NEGATIVE) Urine Urobilinogen 0.2 (<2.0) EU/dL Ur Leukocyte Esterase NEGATIVE (NEGATIVE) Urine HCG, Qual NEGATIVE (NEGATIVE) 12/27/20 Range/Units 23:51 WBC (4.0-11.0) K/uL RBC (4.30-5.90) M/uL Hgb (12.0-16.0) g/dL Hct (36.0-46.0) % MCV (80.0-98.0) fL MCH (27.0-32.0) pg MCHC (31.0-37.0) g/dL RDW Std Deviation (28.0-62.0) fl RDW Coeff of Hector (11.0-15.0) % Plt Count (150-400) K/uL MPV (7.40-12.00) fL Neut % (Auto) (48.0-80.0) % Lymph % (Auto) (16.0-40.0) % [place] % (Auto) (0.0-15.0) % Eos % (Auto) (0.0-7.0) % Baso % (Auto) (0.0-1.5) % Neut # (Auto) (1.4-5.7) K/uL Lymph # (Auto) (0.6-2.4) K/uL [place] # (Auto) (0.0-0.8) K/uL Eos # (Auto) (0.0-0.7) K/uL Baso # (Auto) (0.0-0.1) K/uL Nucleated RBC % /100WBC Nucleated RBCs # K/uL Sodium 140 (136-145) mmol/L Potassium 3.6 (3.5-5.1) mmol/L Chloride 106 (98-107) mmol/L Carbon Dioxide 26.7 (21.0-32.0) mmol/L BUN 8 (7.0-18.0) mg/dL Creatinine 0.8 (0.6-1.0) mg/dL Est Cr Clr Drug Dosing 93.63 mL/min Estimated GFR (MDRD) > 60.0 ml/min Glucose 108 H (74-106) mg/dL Calcium 8.1 L (8.5-10.1) mg/dL Total Bilirubin 0.3 (0.2-1.0) mg/dL AST 17 (15-37) IU/L ALT 29 (14-63) IU/L Alkaline Phosphatase 56 (46-116) U/L Total Protein 6.3 L (6.4-8.2) g/dL Albumin 2.8 L (3.4-5.0) g/dL Globulin 3.5 (2.6-4.0) g/dL Albumin/Globulin Ratio 0.8 L (0.9-1.6) Lipase 132 (73-393) U/L Urine Color Urine Appearance Urine pH (5.0-8.0) Ur Specific [place] (1.001-1.035) Urine Protein (NEGATIVE) mg/dL Urine Glucose (UA) (NEGATIVE) mg/dL Urine Ketones (NEGATIVE) mg/dL Urine Occult Blood (NEGATIVE) Urine Nitrite (NEGATIVE) Urine Bilirubin (NEGATIVE) Urine Urobilinogen (<2.0) EU/dL Ur Leukocyte Esterase (NEGATIVE) Urine HCG, Qual (NEGATIVE) Meds: Medications Discontinued Medications Generic Name Dose Route Start Last Admin Trade Name Freq PRN Reason Stop Dose Admin Al Hydroxide/Mg Hydroxide 15 0 ml 12/28/20 02:20 12/28/20 02:27 ml/ Lidocaine HCl 5 ml PO 12/28/20 02:21 1 each ONETIME ONE Administration Famotidine 20 mg 12/28/20 02:20 12/28/20 02:27 Pepcid IVPUSH 12/28/20 02:21 20 mg ONETIME ONE Administration Lactated Ringer's 1,000 mls @ 999 mls/hr 12/28/20 00:05 12/28/20 00:22 Ringers, Lactated IV 12/28/20 01:05 999 mls/hr .BOLUS ONE Administration Iopamidol 100 ml 12/28/20 00:58 12/28/20 00:59 Isovue Multipack-370 (76%) IVPUSH 12/28/20 00:59 100 ml ONETIME STA Administration Morphine Sulfate 4 mg 12/28/20 00:13 12/28/20 00:22 Morphine IVPUSH 12/28/20 00:14 4 mg ONETIME ONE Administration Morphine Sulfate Confirm 12/28/20 00:14 12/28/20 00:21 Morphine Administered 12/28/20 00:15 Not Given Dose 4 mg .ROUTE .STK-MED ONE Ondansetron HCl 4 mg 12/28/20 00:05 12/28/20 00:22 Zocarol IVPUSH 12/28/20 00:06 4 mg ONETIME ONE Administration Departure - Departure Time of Disposition: 02:54 Disposition: Home, Self-Care 01 Condition: Fair Clinical Impression: Abdominal pain - Discharge Information *PRESCRIPTION DRUG MONITORING PROGRAM REVIEWED*: No *COPY OF PRESCRIPTION DRUG MONITORING REPORT IN PATIENT LONG: No Instructions: Peptic Ulcer, [id number], Nausea and Vomiting, Adult, Easy-to- Read, Abdominal Pain, Adult, [id number] Referrals: [facility] [Outside] [place] AlvinAlok brown [Ordering Only Provider] - Viktoriya Harry DO [Primary Care Provider] - Forms: ED Department Discharge Additional Instructions: You evaluate today on an emergent basis. At this time it is uncertain as to what is causing your abdominal pain however we did treat you for reflux or peptic ulcer disease. I recommend the use of Pepcid 20 mg at bedtime and follow-up your primary care physician for referral to GI. If you have any new or worsening symptoms please return to the emergency department. [facility] - Primary Care [address] [place] [address] [place] [address] The patient is informed of any results of their evaluation and diagnostic workup and all questions are answered. They are given discharge instructions and return precautions. The patient is stable for discharge. The patient states they understand and agree with the plan and that they will return if their symptoms get worse or if they have any new concerns. The following information is given to patients seen in the emergency department who are being discharged to home. This information is to outline your options for follow-up care. We provide all patients seen in our emergency department with a follow-up referral. The need for follow-up, as well as the timing and circumstances, are variable depending upon the specifics of your emergency department visit. If you don't have a primary care physician on staff, we will provide you with a referral. We always advise you to contact your personal physician following an emergency department visit to inform them of the circumstance of the visit and for follow-up with them and/or the need for any referrals to a consulting specialist. The emergency department will also refer you to a specialist when appropriate. This referral assures that you have the opportunity for follow-up care with a specialist. All of these measure are taken in an effort to provide you with optimal care, which includes your follow-up. Under all circumstances we always encourage you to contact your private physician who remains a resource for coordinating your care. When calling for follow-up care, please make the office aware that this follow-up is from your recent emergency room visit. If for any reason you are refused follow-up, please contact the [facility] Emergency Department at and asked to speak to the emergency department charge nurse. Sepsis Event Note (ED) - Evaluation Sepsis Screening Result: No Definite Risk
[2020-12-28 03:02] VITALS: BP 116/68; PULSE 82
== END 2020-12-28 02:57 | disposition home or self-care (01) ==
LOC: MW.ED 23:11
DX: R10.13 Epigastric pain (principal); R10.12 Left upper quadrant pain; G89.29 Other chronic pain; R11.10 Vomiting, unspecified; J45.909 Unspecified asthma, uncomplicated; E66.9 Obesity, unspecified; Z68.28 Body mass index [BMI] 28.0-28.9, adult; Z88.0 Allergy status to penicillin; Z79.899 Other long term (current) drug therapy
CPT/HCPCS: 36415; 74177; 80053; 81003; 81025; 83690; 85025; 96374; 96375; 99284; A9270; J2270; J2405; J3490; J7120; Q9967; 99283

== ENCOUNTER 2021-12-21 11:37 | Inpatient (IN) | payer OTHER ==
[2021-12-21] MEDS: Lactated Ringers 1,000 ML IV SCH ×3 (13:00→17:36)
[2021-12-21] MEDS ORDERED: Sodium Chloride 0.9% 20 ML SDV IV PRN (14:05)
[2021-12-21] MEDS ORDERED: Sodium Chloride 0.9% 10 ML Syringe FLUSH PRN (14:05)
[2021-12-21] MEDS ORDERED: Citric Acid/Sodium Citrate Solution 30 ML Cup PO ONE (14:05)
[2021-12-21] MEDS ORDERED: Sodium Chloride 0.9% 2.5 ML Syringe FLUSH PRN (14:05)
[2021-12-21] MEDS ORDERED: Oxytocin/0.9 % Sodium Chloride 30 UNIT/500 ML BAG IV SCH (14:15)
[2021-12-21] MEDS ORDERED: Lactated Ringers 1,000 ML IV SCH ×2 (14:15→16:30)
[2021-12-21] MEDS ORDERED: Metoclopramide 10 MG/2 ML SDV IVPUSH PRN (14:37)
[2021-12-21] MEDS ORDERED: Morphine 4 MG/ML VIAL IVPUSH PRN (14:37)
[2021-12-21] MEDS ORDERED: Naloxone 0.4 MG/ML SDV IVPUSH PRN (14:37)
[2021-12-21] MEDS ORDERED: diphenhydrAMINE 50 MG/ML SDV IVPUSH PRN ×2 (14:37→16:28)
[2021-12-21] MEDS ORDERED: Albuterol 0.083% 2.5 MG/3 ML Neb Soln NEB PRN (14:37)
[2021-12-21] MEDS ORDERED: fentaNYL 100 MCG/2 ML SDV IVPUSH PRN ×2 (14:37)
[2021-12-21] MEDS ORDERED: HYDROmorphone 1 MG/ML Syringe IVPUSH PRN (14:37)
[2021-12-21] MEDS ORDERED: Ondansetron 4 MG/2 ML SDV IVPUSH PRN ×2 (14:37)
[2021-12-21] MEDS ORDERED: Scopolamine 1.5 MG Transdermal Patch TOP ONE (14:37)
[2021-12-21] MEDS ORDERED: Oxytocin 10 Units/1 ML SDV ONE (14:44)
[2021-12-21] MEDS ORDERED: Morphine PF 10 MG/10 ML SDV ONE (14:45)
[2021-12-21] MEDS ORDERED: Azithromycin 500 MG in Sodium Chloride 0.9% 250 ML IV SCH (15:00)
[2021-12-21] MEDS ORDERED: Ondansetron 4 MG/2 ML SDV ONE (15:21)
[2021-12-21] MEDS ORDERED: Ketorolac 30 MG/ML SDV ONE (16:28)
[2021-12-21] MEDS ORDERED: Oxytocin 10 Units/1 ML SDV IM PRN (16:28)
[2021-12-21] MEDS ORDERED: Methylergonovine 0.2 MG/1 ML Amp IM PRN (16:28)
[2021-12-21] MEDS ORDERED: Lanolin 100% Cream 7 GM Tube TOP PRN (16:28)
[2021-12-21] MEDS ORDERED: Misoprostol 200 MCG Tab RECTAL PRN (16:28)
[2021-12-21] MEDS ORDERED: Bisacodyl 10 MG Supp RECTAL PRN (16:28)
[2021-12-21] MEDS ORDERED: Tranexamic Acid 1,000 MG in Sodium Chloride 0.9% 100 ML IV PRN (16:28)
[2021-12-21] MEDS: Ketorolac 30 MG/ML SDV IVPUSH SCH ×2 (16:50→22:25)
[2021-12-21] MEDS ORDERED: ePHEDrine 50 MG/ML SDV IVPUSH ONE ×2 (17:53→19:26)
[2021-12-21] MEDS ORDERED: Lactated Ringers 500 ML IV ONE (19:30)
[2021-12-21] MEDS: Docusate Sodium 100 MG Cap PO SCH (21:38)
[2021-12-21] MEDS ORDERED: guaiFENesin 100 MG/5 ML Soln 10 ML UD Cup PO PRN (23:54)
[2021-12-22] MEDS ORDERED: guaiFENesin 100 MG/5 ML Soln 5 ML UD Cup ONE (00:25)
[2021-12-22] MEDS: Ketorolac 30 MG/ML SDV IVPUSH SCH ×3 (04:29→16:37)
[2021-12-22] MEDS: Docusate Sodium 100 MG Cap PO SCH ×2 (09:56→22:42)
[2021-12-22] MEDS: guaiFENesin 100 MG/5 ML Soln 5 ML UD Cup PO PRN ×2 (09:58→16:36)
[2021-12-22] MEDS: Ibuprofen 800 MG Tab PO PRN (22:42)
[2021-12-22] MEDS: Acetaminophen/oxyCODONE 325-5 MG Tab PO PRN (23:08)
[2021-12-23] MEDS: Acetaminophen/oxyCODONE 325-5 MG Tab PO PRN ×4 (05:16→15:14)
[2021-12-23] MEDS: Ibuprofen 800 MG Tab PO PRN (08:15)
[2021-12-23] MEDS: Docusate Sodium 100 MG Cap PO SCH (09:33)
[2021-12-23 15:56] VITALS: BP 121/61; PULSE 83
== END 2021-12-23 15:28 | disposition home or self-care (01) | DRG 788 ==
LOC: MW.OBCHECK 11:37 → MW.OB 11:40 → MW.OBCHECK 15:40 → MW.OB 22:06
PROVIDERS: ADMIT Obstetrics & Gynecology; ATTEND Obstetrics & Gynecology
PROC: 10D00Z1 Extraction of Products of Conception, Low, Open Approach (ICD-10-PCS; principal; 2021-12-21)
DX: O34.211 Maternal care for low transverse scar from previous cesarean delivery (principal); Z3A.37 37 weeks gestation of pregnancy; Z37.0 Single live birth; O36.5930 Maternal care for other known or suspected poor fetal growth, third trimester, not applicable or unspecified; Z20.822 Contact with and (suspected) exposure to COVID-19
CPT/HCPCS: 01961; 36415; 59025; 82803; 85014; 85018; 85027; 86592; 86850; 86900; 86901; A9270-GY; J0690; J1790; J1885; J2274; J2370; J2405; J2590; J7120; U0002

== ENCOUNTER 2024-04-21 10:24 | Emergency (ER) | payer OTHER ==
[2024-04-21 10:31] VITALS: BP 104/66; PULSE 90
[2024-04-21] MEDS: Sodium Chloride 0.9% 1,000 ML IV ONE ×2 (10:58→12:36)
[2024-04-21] MEDS: Ondansetron 4 MG/2 ML SDV IVPUSH ONE (10:58)
[2024-04-21] MEDS: Metoclopramide 10 MG/2 ML SDV IV ONE (12:26)
[2024-04-21] MEDS: diphenhydrAMINE 50 MG/ML SDV IVPUSH ONE (12:26)
[2024-04-21 13:34] LABS: APPEARANCE,URINE CLEAR; BILIRUBIN,URINE NEGATIVE (NEGATIVE); COLOR,URINE YELLOW; GLUCOSE,URINE NEGATIVE (NEGATIVE); KETONES,URINE 40 mg/dL (NEGATIVE); LEUKOCYTE ESTERASE,URINE NEGATIVE (NEGATIVE); NITRITE,URINE NEGATIVE (NEGATIVE); OCCULT BLOOD,URINE NEGATIVE (NEGATIVE); PROTEIN,URINE NEGATIVE (NEGATIVE); UROBILINOGEN,URINE 0.2 EU/dL (<2.0)
== END 2024-04-21 13:54 | disposition home or self-care (01) ==
LOC: MW.ED 10:24
DX: K29.70 Gastritis, unspecified, without bleeding (principal); R11.2 Nausea with vomiting, unspecified; E66.9 Obesity, unspecified; Z79.899 Other long term (current) drug therapy; Z88.0 Allergy status to penicillin; Z75.8 Other problems related to medical facilities and other health care
CPT/HCPCS: 81003; 96361; 96374; 96375; 99284; J1200; J2405; J2765; J7030; 99283